=== PATIENT | female | born 1940 | race Caucasian/White ===

== ENCOUNTER 2020-02-05 19:26 | Inpatient (IN) ==
[2020-02-05] MEDS ORDERED: NS 0.9% 1000 ml BAG 1,000 ML IV.FLUID IV ONE (19:27)
[2020-02-05 19:51] LABS: Hematocrit 52 % (35-47); Hemoglobin 16.6 g/dL (12.0-16.0); Mean Corpuscular HGB Conc 32 g/dL (31-36); Mean Corpuscular Hemoglobin 30 pg (27-31); Mean Corpuscular Volume 93 fL (80-97); Mean Platelet Volume 11.2 fL (7.4-10.4); Platelet Count 180 10^3/uL (150-450); Red Blood Count 5.56 10^6 /uL (3.70-4.87); Red Cell Distribution Width 16 % (10-15); White Blood Count 13.4 10^3/uL (3.5-10.8)
[2020-02-05 19:58] LABS: ABS Lymphocytes 1.2 10^3/ul (1.0-4.8); ABS Monocytes 1.1 10^3/ul (0-0.8); ABS Neutrophils 11.3 10^3/ul (1.5-7.7); Lymphocyte % 8.6 %
[2020-02-05 20:08] LABS: Activated Partial Thrombo Time 30.3 seconds (26.0-38.0); INR 1.66 (0.82-1.09)
[2020-02-05 20:09] LABS: ALT 100 U/L (7-52); AST 154 U/L (13-39); Albumin 3.8 g/dL (3.2-5.2); Albumin/Globulin Ratio 1.2 (1-3); Alkaline Phosphatase 91 U/L (34-104); BUN/Creatinine Ratio 36.4 (8-20); Blood Urea Nitrogen 78 mg/dL (6-24); CO2 Carbon Dioxide 24 mmol/L (22-32); Calcium 8.8 mg/dL (8.6-10.3); EGFR Non-African American 22.3 (>60); Globulin 3.1 g/dL (2-4); Glucose 182 mg/dL (70-100); Potassium 3.6 mmol/L (3.5-5.0); Total Protein 6.9 g/dL (6.4-8.9)
[2020-02-05 20:10] LABS: Chloride 126 mmol/L (101-111)
[2020-02-05 20:12] LABS: Anion Gap 14 mmol/L (2-11); Sodium 164 mmol/L (135-145); Troponin I 0.12 ng/mL (<0.03)
[2020-02-05 20:15] LABS: Urine Appearance Cloudy; Urine Bilirubin Negative (Negative); Urine Blood 1+ (Negative); Urine Color Amber; Urine Glucose Negative (Negative); Urine Ketones Negative (Negative); Urine Nitrite Negative (Negative); Urine Protein 2+(100 mg/dL) (Negative); Urine Urobilinogen Positive (Negative)
[2020-02-05 20:24] LABS: Urine Bacteria Absent (Absent); Urine Red Blood Cell 3+(>10/hpf) (Absent); Urine Squamous Epithelial Cell Present (Absent); Urine White Blood Cell Absent (Absent)
[2020-02-05] MEDS ORDERED: Albuterol 2.5mg/3 ml (0.083%) NEB.SOLN INH PRN (21:04)
[2020-02-05] MEDS ORDERED: NS 0.9% 1000 ml BAG 1,000 ML IV SCH (21:30)
[2020-02-05] MEDS ORDERED: Piperacillin/Tazobac ADVAN 3.375 GM in NS 0.9% 100 ml BAG 100 ML IV ONE (21:32)
[2020-02-05] MEDS ORDERED: Remdesivir 5 MG/ML LIQ IV Vial 100 MG in NS 0.9% 250 ml 230 ML IV SCH (21:45)
[2020-02-05] MEDS ORDERED: Ondansetron 4 mg VIAL 2 MG/ML 2 ml VIAL IV PRN (21:53)
[2020-02-05] MEDS ORDERED: LORazepam 2 mg VIAL 1 ml IV PUSH PRN (21:53)
[2020-02-05] MEDS ORDERED: Lorazepam PYXIS KEY PRN (21:53)
[2020-02-05] MEDS ORDERED: Zosyn per Pharmacy NOTE FOLLOW UP SCH (22:00)
[2020-02-05] MEDS ORDERED: Heparin 5000 UNITS/ML 1 mL VIAL SUBCUT SCH (22:00)
[2020-02-05] MEDS ORDERED: Linezolid 600 MG IVPREMIX(*) 600 MG/300 ML BAG IVPB SCH (22:00)
[2020-02-05 22:04] LABS: Urine Appearance Cloudy; Urine Bilirubin Negative (Negative); Urine Blood 1+ (Negative); Urine Color Amber; Urine Glucose Negative (Negative); Urine Ketones Negative (Negative); Urine Nitrite Negative (Negative); Urine Protein 2+(100 mg/dL) (Negative); Urine Urobilinogen Negative (Negative)
[2020-02-05 22:16] LABS: Urine Creatinine Concentration 228.16 mg/dL; Urine Sodium Concentration < 18 mmol/L
[2020-02-05 22:21] LABS: Urine Bacteria Absent (Absent); Urine Red Blood Cell 3+(>10/hpf) (Absent); Urine Squamous Epithelial Cell Present (Absent); Urine White Blood Cell Trace(0-5/hpf) (Absent)
[2020-02-05] MEDS ORDERED: Remdesivir 5 MG/ML LIQ IV Vial 200 MG in NS 0.9% 250 ml 210 ML IV ONE (22:30)
[2020-02-05] MEDS ORDERED: Piperacillin/Tazobac 3.375 GM BAG ONE (22:48)
[2020-02-05 23:44] LABS: BUN/Creatinine Ratio 39.1 (8-20); Blood Urea Nitrogen 72 mg/dL (6-24); CO2 Carbon Dioxide 23 mmol/L (22-32); Calcium 8.3 mg/dL (8.6-10.3); EGFR African American 32.1 (>60); EGFR Non-African American 26.5 (>60); Glucose 168 mg/dL (70-100); Potassium 3.6 mmol/L (3.5-5.0)
[2020-02-05 23:49] LABS: Influenza A Molecular Negative (Negative); Influenza B Molecular Negative (Negative)
[2020-02-05 23:52] LABS: Anion Gap 10 mmol/L (2-11); Chloride 131 mmol/L (101-111); Sodium 164 mmol/L (135-145); Troponin I 0.12 ng/mL (<0.03)
[2020-02-06] MEDS: Morphine 2 MG/ML SYRINGE IV PRN ×4 (00:56→23:14)
[2020-02-06] MEDS ORDERED: Dexamethasone IV 4 MG/ML VIAL 1 ml VIAL IV SLOW PU SCH (09:00)
[2020-02-06] MEDS: Atropine 1% (ORAL/SL) 15 ML BTL SL PRN (17:30)
[2020-02-07 05:08] VITALS: BP 123/47
[2020-02-07] MEDS: Morphine 2 MG/ML SYRINGE IV PRN ×2 (10:34→22:17)
[2020-02-08] MEDS: Morphine 2 MG/ML SYRINGE IV PRN ×2 (06:09→17:31)
[2020-02-08] MEDS: Atropine 1% (ORAL/SL) 15 ML BTL SL PRN (17:32)
== END 2020-02-09 04:35 | disposition expired | DRG 871 ==
LOC: ED 19:26 → ICU 21:33 → MED 02-06 12:48
PROVIDERS: ADMIT Internal Medicine; ATTEND Hospitalist